=== PATIENT | male | born 1970 ===

== ENCOUNTER 2017-09-26 07:12 | Emergency (ER) | payer OTHER ==
[2017-09-26 07:24] VITALS: BMI 32.3
[2017-09-26 07:36] VITALS: O2SAT 98
--- NOTE | 2017-09-26 07:54 | ED PDOC ---
HPI: Back Time Seen by Provider: 09/26/17 07:42 Chief Complaint (Nursing): Lower Extremity Problem/Injury History Per: Patient (47 yo male with DM who presents for evaluation of severe back pain x 1 week. The pain is sharp and radiates to the left side. Patient has difficulty sitting and lying down. He denies injury or overexertion. He has not been seen by his doctor at the [facility]. He last took motrin yesterday evening.) History/Exam Limitations: no limitations Onset/Duration Of Symptoms: Sudden Onset, Persistent Current Symptoms Are (Timing): Still Present Past Medical History Reviewed: Historical Data, Nursing Documentation, Vital Signs Vital Signs: Last Vital Signs Temp 97.5 F L 09/26/17 07:24 Pulse 78 09/26/17 07:24 Resp 20 09/26/17 07:24 BP 160/111 H 09/26/17 07:24 Pulse Ox 98 09/26/17 07:34 - Medical History PMH: Diabetes Denies: Chronic Kidney Disease - Surgical History Surgical History: No Surg Hx - Family History Family History: States: No Known Family Hx - Living Arrangements Living Arrangements: With Family - Social History Current smoker - smoking cessation education provided: No Alcohol: Social - Home Medications Home Medications: Ambulatory Orders Medication Instructions Recorded Blood-Glucose Meter [Blood Glucose 1 each MC ONCE #1 each 02/04/16 Meter] Blood-Glucose Meter, Drum-Type 1 each MC ACHS #30 kit 02/04/16 [Accu-Chek] Ciprofloxacin [Cipro] 500 mg PO BID #14 tab 02/04/16 metFORMIN [glucOPHAGE] 850 mg PO BID #60 tab 02/04/16 metroNIDAZOLE [Flagyl] 500 mg PO Q8 #42 tab 02/04/16 Cyclobenzaprine [Cyclobenzaprine 10 mg PO TID #30 tab 09/26/17 HCl] Ketorolac Tromethamine [Toradol] 10 mg PO Q6H PRN #19 tab 09/26/17 - Allergies Allergies/Adverse Reactions: Allergies Allergy/AdvReac Type Severity Reaction Status Date / Time No Known Allergies Allergy Verified 09/26/17 07:33 Review of Systems ROS Statement: Except As Marked, All Systems Reviewed And Found Negative Constitutional: Negative for: Fever, Chills Cardiovascular: Negative for: Chest Pain Respiratory: Negative for: Cough, Shortness of Breath Gastrointestinal: Negative for: Nausea, Vomiting, Diarrhea, Constipation Genitourinary Male: Negative for: Dysuria, Frequency, Incontinence, Hematuria Musculoskeletal: Positive for: Back Pain, Leg Pain (left). Negative for: Neck Pain, Shoulder Pain Physical Exam - Reviewed Nursing Documentation Reviewed: Yes Vital Signs Reviewed: Yes - Physical Exam Appears: Positive for: Well, Non-toxic, No Acute Distress Head Exam: Positive for: ATRAUMATIC, NORMAL INSPECTION, NORMOCEPHALIC Skin: Positive for: Normal Color, Warm. Negative for: Rash Eye Exam: Positive for: Normal appearance ENT: Positive for: Normal ENT Inspection Neck: Positive for: Normal Cardiovascular/Chest: Positive for: Regular Rate, Rhythm Respiratory: Positive for: CNT, Normal Breath Sounds Gastrointestinal/Abdominal: Positive for: Normal Exam, Soft Back: Positive for: Normal Inspection, Decreased ROM, Muscle Spasm, Other (pain when trying to sit and lie down on stretcher.). Negative for: Vertebral Tenderness Extremity: Positive for: Normal ROM Neurologic/Psych: Positive for: Alert, Oriented - Laboratory Results Urine dip results: Negative for: Leukocyte Esterase, Blood, Nitrate, Ketones, Glucose, Bilirubin, Protein - ECG O2 Sat by Pulse Oximetry: 98 - Progress Re-evaluation Time: 09:00 Condition: Re-examined, Improving,but remains with symptoms Medical Decision Making Medical Decision Making: acute lumbar strain 9.00a - patient is feeling better. Advised to avoid lying in bed waiting for improvement. Advised to do usual activities as much as possible to help healing. Disposition - Clinical Impression Clinical Impression: Muscle spasm of back - Patient ED Disposition Is Patient to be Admitted: No Doctor Will See Patient In The: Office Counseled Patient/Family Regarding: Diagnosis, Need For Followup, Rx Given - Disposition Disposition: Routine/Home Disposition Time: 09:15 Condition: IMPROVED Prescriptions: Cyclobenzaprine [Cyclobenzaprine HCl] 10 mg PO TID #30 tab Ketorolac Tromethamine [Toradol] 10 mg PO Q6H PRN #19 tab PRN Reason: Pain, Moderate (4-7) Instructions: Muscle Spasms (DC) Forms: [facility] ([place]), [facility] ED School/Work Excuse Print Language: FILIPINO - POA Present On Arrival: None
[2017-09-26 09:46] VITALS: BP 136/90; PULSE 79; RESP 18; TEMP 97.6
== END 2017-09-26 09:50 | disposition home or self-care (01) ==
LOC: H.ER 07:12
DX: S39.012A Strain of muscle, fascia and tendon of lower back, initial encounter (principal); E11.9 Type 2 diabetes mellitus without complications; Z79.84 Long term (current) use of oral hypoglycemic drugs
CPT/HCPCS: 96372; 99283; J1885

== ENCOUNTER 2017-09-28 10:17 | Emergency (ER) | payer OTHER ==
[2017-09-28 10:17] VITALS: BMI 32.3
[2017-09-28 10:33] VITALS: RESP 20; O2SAT 99
[2017-09-28] MEDS ORDERED: Oxycodone/Acetaminophen 5/325 mg Tab PO STA (11:42)
[2017-09-28] MEDS ORDERED: Oxycodone/Acetaminophen 5/325 mg Tab ONE (12:03)
--- NOTE | 2017-09-28 13:01 | ED PDOC ---
Lower Extremity Pain/Injury Time Seen by Provider: 09/28/17 11:07 Chief Complaint (Nursing): Lower Extremity Problem/Injury Chief Complaint (Provider): Right lower back pain History Per: Patient History/Exam Limitations: no limitations Onset/Duration Of Symptoms: Days Current Symptoms Are (Timing): Still Present Additional Complaint(s): PT was seen in ER 2 days ago. Pt was sent home on flexeril and motrin. PT denies improvement of pain. Pt reports history of back pain. No bladder or bwoel incontinence. No numbness/tingling. No fever/. Past Medical History Reviewed: Historical Data, Nursing Documentation, Vital Signs Vital Signs: Last Vital Signs Temp 98.5 F 09/28/17 10:33 Pulse 84 09/28/17 10:33 Resp 20 09/28/17 10:33 BP 146/89 09/28/17 10:33 Pulse Ox 99 09/28/17 10:33 - Medical History PMH: Diabetes Denies: Chronic Kidney Disease - Family History Family History: States: Unknown Family Hx - Home Medications Home Medications: Ambulatory Orders Medication Instructions Recorded Blood-Glucose Meter [Blood Glucose 1 each MC ONCE #1 each 02/04/16 Meter] Blood-Glucose Meter, Drum-Type 1 each MC ACHS #30 kit 02/04/16 [Accu-Chek] Ciprofloxacin [Cipro] 500 mg PO BID #14 tab 02/04/16 metFORMIN [glucOPHAGE] 850 mg PO BID #60 tab 02/04/16 metroNIDAZOLE [Flagyl] 500 mg PO Q8 #42 tab 02/04/16 Cyclobenzaprine [Cyclobenzaprine 10 mg PO TID #30 tab 09/26/17 HCl] Ketorolac Tromethamine [Toradol] 10 mg PO Q6H PRN #19 tab 09/26/17 oxyCODONE/Acetaminophen [Percocet 1 ea PO Q6H PRN #15 tab 09/28/17 5/325 mg Tab] - Allergies Allergies/Adverse Reactions: Allergies Allergy/AdvReac Type Severity Reaction Status Date / Time No Known Allergies Allergy Verified 09/26/17 07:33 Review of Systems ROS Statement: Except As Marked, All Systems Reviewed And Found Negative Constitutional: Negative for: Fever, Chills Musculoskeletal: Positive for: Back Pain Physical Exam - Reviewed Nursing Documentation Reviewed: Yes Vital Signs Reviewed: Yes - Physical Exam Appears: Positive for: Well, Non-toxic, No Acute Distress Head Exam: Positive for: ATRAUMATIC, NORMAL INSPECTION, NORMOCEPHALIC Skin: Positive for: Normal Color, Warm, DRY Eye Exam: Positive for: Normal appearance ENT: Positive for: Normal ENT Inspection Neck: Positive for: Normal, Painless ROM Cardiovascular/Chest: Positive for: Regular Rate, Rhythm Respiratory: Positive for: CNT, Normal Breath Sounds Gastrointestinal/Abdominal: Positive for: Normal Exam, Soft. Negative for: Tenderness Back: Positive for: Normal Inspection, Other ((+) right leg raise ) Extremity: Positive for: Normal ROM Neurologic/Psych: Positive for: Alert, Oriented - ECG O2 Sat by Pulse Oximetry: 99 Medical Decision Making Medical Decision Making: PT reports feeling better after percocet and would like to go. Disposition - Clinical Impression Clinical Impression: Sciatica - Patient ED Disposition Is Patient to be Admitted: No Counseled Patient/Family Regarding: Diagnosis, Need For Followup, Rx Given - Disposition Disposition: Routine/Home Disposition Time: 13:01 Condition: STABLE Prescriptions: oxyCODONE/Acetaminophen [Percocet 5/325 mg Tab] 1 ea PO Q6H PRN #15 tab PRN Reason: Pain, Severe (8-10) Instructions: Sciatica (DC)
[2017-09-28 13:24] VITALS: BP 128/78; PULSE 78; TEMP 98
== END 2017-09-28 13:24 | disposition home or self-care (01) ==
LOC: H.ER 10:17
DX: M54.30 Sciatica, unspecified side (principal); E11.9 Type 2 diabetes mellitus without complications; Z79.84 Long term (current) use of oral hypoglycemic drugs